=== PATIENT | male | born 1965 | race Caucasian/White ===

== ENCOUNTER 2016-10-27 21:11 | Emergency (ER) | payer OTHER ==
[~2016-10-27] VITALS: Ht 185.4 cm; Wt 105.2 kg
[~2016-10-27 21:11] MED LIST: NAPR500 PO; ROBA750T PO
[2016-10-27 21:17] VITALS: BP 135/85; PULSE 82; RESP 18; TEMP 98; O2SAT 96
--- NOTE | 2016-10-27 21:25 | PD ---
HPI Chief Complaint: Back/ Neck Pain or Injury Time Seen by Provider: 21:25 Travel History International Travel<30 days: No Contact w/Intl Traveler<30days: No Traveled to known affect area: No History of Present Illness HPI 51-year-old male presents to emergency Department with right lower back pain and spasm instruction 4:30 this afternoon. Patient was at work pushing a large console with another worker when he feels he may have strained himself. Since that time he's had increased pain and spasm in the right region which is worse with movement and walking. He denies numbness or weakness in either lower extremity. No bowel or bladder issues. Patient describes the pain as a spasming ache which is 8 out of 10 currently. He has no known drug allergies PFSH Past Medical History Diminished Hearing: No Musculoskeletal: Yes (TENDINITIS) Immunizations Current: No Past Surgical History Other Surgery: Yes (tendon and nerve repair to right shoulder from injury 5 years ago ) Social History Alcohol Use: No Tobacco Use: No Substance Use: No Allergies-Medications (Allergen,Severity, Reaction): Coded Allergies: No Known Allergies (Verified , 10/27/16) Reported Meds & Prescriptions Reported Meds & Active Scripts Active Tramadol (Tramadol HCl) 50 Mg Tab 50 Mg PO Q6H PRN Prednisone 20 Mg Tab 20 Mg PO BID Flexeril (Cyclobenzaprine HCl) 10 Mg Tab 10 Mg PO TID Review of Systems Except as stated in HPI: all other systems reviewed are Neg General / Constitutional: No: Fever Eyes: No: Visual changes HENT: No: Headaches Cardiovascular: No: Chest Pain or Discomfort Respiratory: No: Shortness of Breath Gastrointestinal: No: Abdominal Pain Genitourinary: No: Dysuria Musculoskeletal: Positive: Myalgias, Limited ROM, Pain Skin: No Rash Neurologic: No: Weakness Psychiatric: No: Depression Endocrine: No: Polydipsia Hematologic/Lymphatic: No: Easy Bruising Physical Exam Narrative GENERAL: Patient appears in mild to moderate distress. SKIN: Warm and dry. Normal color. Normal turgor HEAD: Atraumatic. Normocephalic. EYES: Pupils equal and round. No scleral icterus. No injection or drainage. ENT: No nasal bleeding or discharge. Mucous membranes pink and moist. Pharynx is clear. NECK: Trachea midline. Supple and nontender. CARDIOVASCULAR: Regular rate and rhythm. RESPIRATORY: No accessory muscle use. Clear to auscultation. Breath sounds equal bilaterally. MUSCULOSKELETAL: Extremities without clubbing, cyanosis, or edema. No obvious deformities. Patient has palpable spasm and tenderness on the right paraspinous muscles of the lumbar spine into the sacral area. Patient has negative straight leg raise pain bilaterally. Tendon reflexes are 1+ bilaterally. NEUROLOGICAL: Awake and alert. No obvious cranial nerve deficits. Motor grossly within normal limits. Five out of 5 muscle strength in the arms and legs. Normal speech. PSYCHIATRIC: Appropriate mood and affect; insight and judgment normal. Data Data Last Documented VS Vital Signs Date Time Temp Pulse Resp B/P Pulse Ox O2 Delivery O2 Flow Rate FiO2 10/27/16 21:17 98.0 82 18 135/85 96 Orders Ketorolac Inj (Toradol Inj) (10/27/16 21:30) Prednisone (Deltasone) (10/27/16 21:30) MDM Medical Decision Making Medical Screen Exam Complete: Yes Emergency Medical Condition: Yes Differential Diagnosis Lumbago. Muscle spasm. Lumbar strain. Possible sciatica. Narrative Course Patient is medically stable at time of exam. Radiographic imaging is not felt warranted at this time based on the patient's history and physical. Patient is given Toradol 60 mg IM as well as 60 mg prednisone by mouth. Patient is continued on prednisone 20 mg twice a day 5 days. Patient is given Flexeril 10 mg 1 up to 3 times daily when necessary muscle spasm #15. Patient is given Toradol 20 mg one every 6 hours when necessary pain #20. Patient is to use heat, ice, and gentle stretching until improved. Patient should follow with his primary care physician or return to emergency Department with worsening symptoms as discussed. Diagnosis Primary Impression: Lumbago without sciatica Qualified Code: M54.5 - Acute right-sided low back pain without sciatica Additional Impression: Muscle spasm Referrals: Primary Care Physician Patient Instructions: Acute Low Back Pain (ED), General Instructions, Lower Back Exercises (ED), Muscle Spasm (ED) Additional Instructions: Radiographic imaging is not felt warranted at this time based on the patient's history and physical. Patient is given Toradol 60 mg IM as well as 60 mg prednisone by mouth. Patient is continued on prednisone 20 mg twice a day 5 days. Patient is given Flexeril 10 mg 1 up to 3 times daily when necessary muscle spasm #15. Patient is given Toradol 20 mg one every 6 hours when necessary pain #20. Patient is to use heat, ice, and gentle stretching until improved. Patient should follow with his primary care physician or return to emergency Department with worsening symptoms as discussed. Med/Other Pt SpecificInfo: Prescription(s) given Scripts Tramadol 50 Mg Tab50 Mg PO Q6H PRN (PAIN) #20 TAB Prov:Deuce Call MD 10/27/16 Prednisone 20 Mg Tab20 Mg PO BID #10 TAB Prov:Deuce Call MD 10/27/16 Cyclobenzaprine (Flexeril)10 Mg Tab10 Mg PO TID #15 TAB Prov:Deuce Call MD 10/27/16 Disposition: 01 DISCHARGE HOME Condition: Stable Manolo Cunningham October 27, 2016 21:25
[2016-10-27] MEDS ORDERED: KETOROLAC TROMETHAMINE 60 MG/2 ML (IM) VIAL IM ONE (21:30)
[2016-10-27] MEDS ORDERED: predniSONE 20 MG TAB PO ONE (21:30)
[2016-10-27] MEDS ORDERED: TRAM50TA PO (21:31)
[2016-10-27] MEDS ORDERED: PRED20 PO (21:31)
[2016-10-27] MEDS ORDERED: CYCL1TAB29 PO (21:31)
== END 2016-10-27 21:48 | disposition home or self-care (01) ==
LOC: PHEFT 21:11
DX: M54.5 Low back pain (principal); M62.830 Muscle spasm of back
CPT/HCPCS: 96372; 99284; J1885; J7512

== ENCOUNTER 2016-12-02 15:53 | Emergency (ER) | payer OTHER ==
[~2016-12-02] VITALS: Ht 185.4 cm; Wt 104.0 kg
[~2016-12-02 15:53] MED LIST changes: +CYCL1TAB29 PO; -NAPR500 PO; +PRED20 PO; -ROBA750T PO; +TRAM50TA PO
[2016-12-02 15:56] VITALS: BP 136/88; PULSE 79; RESP 16; TEMP 98.1; O2SAT 96
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
[2016-12-02] MEDS ORDERED: SODIUM CHLOR 0.9% 1000 ML INJ 1,000 ML IV ONE ×2 (16:30→18:00)
[2016-12-02 16:52] LABS: AUTOMATED NEUTROPHIL # 8.1 TH/MM3 (1.8-7.7); BASOPHIL # 0.2 TH/MM3 (0-0.2); BASOPHIL % 1.4 % (0.0-2.0); EOSINOPHIL # 0.1 TH/MM3 (0-0.4); HEMATOCRIT 45.8 % (39.0-51.0); HEMO FLAGS DIFF FINAL; LYMPH % 15.1 % (9.0-44.0); LYMPHOCYTE # 1.6 TH/MM3 (1.0-4.8); MEAN CELL VOLUME 86.7 FL (80.0-100.0); MEAN CORPUSCULAR HEMOGLOBIN 28.5 PG (27.0-34.0); MEAN CORPUSCULAR HGB CONC 32.8 % (32.0-36.0); MONO % 8.5 % (0.0-8.0); PLATELET COUNT 316 TH/MM3 (150-450); RED BLOOD COUNT 5.28 MIL/MM3 (4.50-5.90); RED CELL DISTRIBUTION WIDTH 12.9 % (11.6-17.2); WHITE BLOOD COUNT 10.9 TH/MM3 (4.0-11.0)
[2016-12-02 16:54] LABS: BLOOD, URINE NEG (NEG); GLUCOSE,URINE NEG (NEG); KETONE, URINE NEG (NEG); NITRITE,URINE NEG (NEG); PH, URINE 5.5 (5.0-8.5)
[2016-12-02 16:58] LABS: POTASSIUM 4.1 MEQ/L (3.5-5.1)
[2016-12-02 17:02] LABS: BICARBONATE 26.9 MEQ/L (21.0-32.0)
[2016-12-02 17:03] LABS: METHOD OF COLLECTION CLEAN CATCH; RBC, URINE 0-3 /hpf (0-3); SQUAMOUS EPITHELIAL CELL URINE 0-5 /hpf (0-5); URINE COLOR YELLOW (YELLW/STRAW)
[2016-12-02 17:04] LABS: COMMENT (UR) CULT NOT INDICATED; CULTURE IF INDICATED CULT NOT INDICATED
[2016-12-02 17:40] LABS: CKMB 3.9 NG/ML (0.5-3.6)
[2016-12-02] MEDS ORDERED: IOHEXOL 350 MG/ML 10 ML VIAL (for RAD DIAG) IV ONE (17:52)
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
[2016-12-02 19:13] VITALS: BP 132/80; PULSE 78; RESP 18; O2SAT 97
== END 2016-12-02 19:17 | disposition home or self-care (01) ==
LOC: PHED 15:53
DX: S80.812A Abrasion, left lower leg, initial encounter (principal); S80.811A Abrasion, right lower leg, initial encounter; W23.0XXA Caught, crushed, jammed, or pinched between moving objects, initial encounter; M62.82 Rhabdomyolysis; Y99.0 Civilian activity done for income or pay
CPT/HCPCS: 71260; 74177; 80048; 81001; 82550; 82552; 85025; 96360; 96361; 99285; J7030; Q9967

== ENCOUNTER 2017-08-20 14:10 | Emergency (ER) | payer OTHER ==
[~2017-08-20] VITALS: Ht 185.4 cm; Wt 103.0 kg
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
[2017-08-20 14:24] VITALS: BP 129/70; PULSE 67; RESP 16; TEMP 97.5; O2SAT 96
[2017-08-20] MEDS ORDERED: SODIUM CHLORIDE 0.9% FLUSH 10 ML FLUSH IV FLUSH PRN (14:30)
[2017-08-20 14:47] VITALS: O2SAT 97
[2017-08-20 14:55] LABS: CHLORIDE 105 MEQ/L (98-107); SODIUM (NA) 139 MEQ/L (136-145)
[2017-08-20 14:58] LABS: CALCIUM 8.7 MG/DL (8.5-10.1)
[2017-08-20 14:59] LABS: ALBUMIN 3.6 GM/DL (3.4-5.0); BICARBONATE 30.3 MEQ/L (21.0-32.0); BLOOD UREA NITROGEN 17 MG/DL (7-18); GLUCOSE,RANDOM 109 MG/DL (74-106)
[2017-08-20 15:01] LABS: BILIRUBIN, URINE NEG (NEG); BLOOD, URINE NEG (NEG); GLUCOSE,URINE NEG (NEG); KETONE, URINE NEG (NEG); NITRITE,URINE NEG (NEG); URINE COLOR YELLOW (YELLW/STRAW); URINE LEUKOCYTE ESTERASE NEG (NEG)
[2017-08-20 15:02] LABS: ALT (GPT) 43 U/L (12-78); AST (GOT) 22 U/L (15-37); GLOMERULAR FILTRATION RATE 64 ML/MIN (>89)
[2017-08-20 15:03] LABS: TOTAL BILIRUBIN ADULT 0.5 MG/DL (0.2-1.0); TOTAL PROTEIN 7.3 GM/DL (6.4-8.2)
[2017-08-20 15:05] LABS: ALKALINE PHOSPHATASE 80 U/L (45-117)
[2017-08-20 15:14] LABS: WBC, URINE 0-2 /hpf (0-5)
--- NOTE | 2017-08-20 15:22 | RADRPT ---
EXAM DATE/TIME: 08/20/2017 14:58 [facility] COMPARISON: CT ABDOMEN & PELVIS W CONTRAST, December 02, 2016, 17:33. INDICATIONS : Lower abdominal pain for 3 days. ORAL CONTRAST: No oral contrast ingested. RADIATION DOSE: 22.09 CTDIvol (mGy) MEDICAL HISTORY : Irritiable bowel syndrome. Renal calculi. Tendonitis SURGICAL HISTORY : Rt elbow ENCOUNTER: Initial ACUITY: 3 days PAIN SCALE: 7/10 LOCATION: middle just below belt TECHNIQUE: Volumetric scanning of the abdomen and pelvis was performed. Using automated exposure control and ad justment of the mA and/or kV according to patient size, radiation dose was kept as low as reasonably achievable to obtain optimal diagnostic quality images. DICOM format image data is available electro nically for review and comparison. FINDINGS: LOWER LUNGS: The visualized lower lungs are clear. LIVER: Homogeneous density without lesion. There is no dilation of the biliary tree. No calcified gallston es. SPLEEN: Normal size without lesion. PANCREAS: Within normal limits. KIDNEYS: Normal in size and shape. There is a 2 mm nonobstructing stone in the lower pole of the left kidney.. ADRENAL GLANDS: Within normal limits. VASCULAR: There is no aortic aneurysm. BOWEL/MESENTERY: The stomach, small bowel, and colon demonstrate no acute abnormality. There is no free intraperitone al air or fluid. ABDOMINAL WALL: Within normal limits. RETROPERITONEUM: There is no lymphadenopathy. BLADDER: No wall thickening or mass. REPRODUCTIVE: Within normal limits. INGUINAL: No adenopathy is seen. There are small bilateral inguinal hernias larger on the left than the right. There is fat herniating into the defect. MUSCULOSKELETAL: Within normal limits for patient age. CONCLUSION: 1. 2 mm nonobstructing stone in the left kidney. 2. Small bilateral inguinal hernias. 3. No definite abnormality to explain the patient's lower abdominal pain is identified. Remberto Pitts MD on August 20, 2017 at 15:17 Board Certified Radiologist. This report was verified electronically.
[2017-08-20 15:27] LABS: AUTOMATED NEUTROPHIL # 4.9 TH/MM3 (1.8-7.7); BASOPHIL # 0.1 TH/MM3 (0-0.2); EOSINOPHIL # 0.2 TH/MM3 (0-0.4); HEMATOCRIT 45.2 % (39.0-51.0); HEMOGLOBIN 15.5 GM/DL (13.0-17.0); LYMPH % 19.7 % (9.0-44.0); LYMPHOCYTE # 1.4 TH/MM3 (1.0-4.8); MEAN CELL VOLUME 86.4 FL (80.0-100.0); MEAN CORPUSCULAR HEMOGLOBIN 29.7 PG (27.0-34.0); MEAN CORPUSCULAR HGB CONC 34.3 % (32.0-36.0); MONO % 7.2 % (0.0-8.0); MONOCYTE # 0.5 TH/MM3 (0-0.9); NEUT % 69.1 % (16.0-70.0); PLATELET COUNT 290 TH/MM3 (150-450); RED BLOOD COUNT 5.24 MIL/MM3 (4.50-5.90); RED CELL DISTRIBUTION WIDTH 12.9 % (11.6-17.2); WHITE BLOOD COUNT 7.1 TH/MM3 (4.0-11.0)
[2017-08-20] MEDS ORDERED: TRAM50 PO (15:45)
[2017-08-20] MEDS ORDERED: METR-1 PO (15:45)
[2017-08-20] MEDS ORDERED: CIPR-9 PO (15:45)
== END 2017-08-20 16:07 | disposition home or self-care (01) ==
LOC: PHED 14:10
DX: K57.30 Diverticulosis of large intestine without perforation or abscess without bleeding (principal); N20.0 Calculus of kidney; K40.20 Bilateral inguinal hernia, without obstruction or gangrene, not specified as recurrent; Z87.19 Personal history of other diseases of the digestive system; Z87.442 Personal history of urinary calculi; Z87.39 Personal history of other diseases of the musculoskeletal system and connective tissue
CPT/HCPCS: 74176; 80053; 81001; 83690; 85025; 99284

== ENCOUNTER 2017-08-24 14:29 | Observation (INO) | payer OTHER ==
[~2017-08-24] VITALS: Ht 185.4 cm; Wt 113.8 kg
[~2017-08-24 14:29] MED LIST changes: +CIPR-9 PO; -CYCL1TAB29 PO; +METR-1 PO; -PRED20 PO; +TRAM50 PO; -TRAM50TA PO
[2017-08-24 14:43] VITALS: BP 144/100; PULSE 76; RESP 18; TEMP 98.5; O2SAT 96
[2017-08-24] MEDS ORDERED: SODIUM CHLOR 0.9% 1000 ML INJ 1,000 ML IV SCH (15:50)
[2017-08-24] MEDS ORDERED: LIDOCAINE VISCOUS 2% SOLN 15 ML UDC PO ONE (16:00)
[2017-08-24] MEDS ORDERED: ALUMINUM/MAGNESIUM/SIMETH 30 ML CUP PO ONE (16:00)
[2017-08-24] MEDS ORDERED: ONDANSETRON HCL 4 MG/2 ML VIAL IVP ONE (16:00)
[2017-08-24] MEDS ORDERED: DICYCLOMINE HCL 20 MG/2 ML VIAL IM ONE (16:00)
[2017-08-24] MEDS ORDERED: SODIUM CHLORIDE 0.9% FLUSH 10 ML FLUSH IV FLUSH PRN ×2 (16:00→18:00)
[2017-08-24] MEDS ORDERED: KETOROLAC TROMETHAMINE 30 MG/ML (IVP) VIAL IVP ONE (16:00)
[2017-08-24 16:47] LABS: BILIRUBIN, URINE NEG (NEG); BLOOD, URINE NEG (NEG); GLUCOSE,URINE NEG (NEG); KETONE, URINE NEG (NEG); NITRITE,URINE NEG (NEG); PH, URINE 5.5 (5.0-8.5); URINE COLOR YELLOW (YELLW/STRAW); URINE LEUKOCYTE ESTERASE TRACE (NEG)
[2017-08-24 16:56] VITALS: O2SAT 98
[2017-08-24 16:56] LABS: CHLORIDE 103 MEQ/L (98-107); SODIUM (NA) 138 MEQ/L (136-145)
[2017-08-24 16:59] LABS: CALCIUM 8.7 MG/DL (8.5-10.1)
[2017-08-24 17:00] LABS: ALBUMIN 3.6 GM/DL (3.4-5.0); BICARBONATE 28.8 MEQ/L (21.0-32.0); BLOOD UREA NITROGEN 13 MG/DL (7-18); GLUCOSE,RANDOM 90 MG/DL (74-106)
[2017-08-24 17:02] LABS: ALT (GPT) 63 U/L (12-78)
[2017-08-24 17:03] LABS: AST (GOT) 39 U/L (15-37); GLOMERULAR FILTRATION RATE 79 ML/MIN (>89)
[2017-08-24 17:04] LABS: TOTAL BILIRUBIN ADULT 0.4 MG/DL (0.2-1.0); TOTAL PROTEIN 7.4 GM/DL (6.4-8.2)
[2017-08-24 17:05] LABS: ALKALINE PHOSPHATASE 72 U/L (45-117)
[2017-08-24 17:11] LABS: BASOPHIL % 0.5 % (0.0-2.0); EOSINOPHIL # 0.2 TH/MM3 (0-0.4); EOSINOPHIL % 2.2 % (0.0-4.0); HEMATOCRIT 44.8 % (39.0-51.0); HEMOGLOBIN 15.1 GM/DL (13.0-17.0); LYMPHOCYTE # 1.5 TH/MM3 (1.0-4.8); MEAN CELL VOLUME 86.3 FL (80.0-100.0); MEAN CORPUSCULAR HEMOGLOBIN 29.1 PG (27.0-34.0); MEAN CORPUSCULAR HGB CONC 33.8 % (32.0-36.0); MEAN PLATELET VOLUME 7.9 FL (7.0-11.0); MONO % 7.9 % (0.0-8.0); MONOCYTE # 0.7 TH/MM3 (0-0.9); NEUT % 71.4 % (16.0-70.0); PLATELET COUNT 283 TH/MM3 (150-450); RED BLOOD COUNT 5.19 MIL/MM3 (4.50-5.90); RED CELL DISTRIBUTION WIDTH 12.7 % (11.6-17.2); WHITE BLOOD COUNT 8.4 TH/MM3 (4.0-11.0)
[2017-08-24] MEDS ORDERED: SODIUM CHLOR 0.9% 1000 ML INJ 1,000 ML IV ONE (17:45)
--- NOTE | 2017-08-24 17:54 | PD ---
HPI Chief Complaint: GI Complaint Time Seen by Provider: 15:46 Travel History International Travel<30 days: No Contact w/Intl Traveler<30days: No Traveled to known affect area: No History of Present Illness HPI Patient's 52 years old and complains of bloody diarrhea. He reports symptoms first began today. He has blood in the toilet paper and in the bowl as well. He was seen here about 3 days ago and imaging at that point was unremarkable lab was blood work. He was discharged with Cipro and Flagyl along with tramadol. He reports pain in the left lower quadrant. The pain is worse with palpation. PFSH Past Medical History Diminished Hearing: No Musculoskeletal: Yes (TENDINITIS) Immunizations Current: No Tetanus Vaccination: > 5 Years Influenza Vaccination: No Past Surgical History Abdominal Surgery: Yes (PERFERATION) Other Surgery: Yes (tendon and nerve repair to right shoulder from injury 5 years ago ) Social History Alcohol Use: No Tobacco Use: No Substance Use: No Allergies-Medications (Allergen,Severity, Reaction): Coded Allergies: No Known Allergies (Verified Adverse Reaction, Unknown, 08/24/17) Reported Meds & Prescriptions Reported Meds & Active Scripts Active Flagyl (Metronidazole) 500 Mg Tab 500 Mg PO TID 5 Days Ultram (Tramadol HCl) 50 Mg Tab 50 Mg PO Q6H PRN Review of Systems Except as stated in HPI: all other systems reviewed are Neg Physical Exam Narrative GENERAL: 52-year-old male well-nourished well-developed no acute distress Vital Signs Date Time Temp Pulse Resp B/P (MAP) Pulse Ox O2 Delivery O2 Flow Rate FiO2 08/24/17 16:56 98 Room Air 08/24/17 14:43 98.5 76 18 144/100 (115) 96 RECTAL: Red mucous stool. No hemorrhoid. No fissure or fistula. SKIN: Warm and dry. HEAD: Atraumatic. Normocephalic. EYES: Pupils equal and round. No scleral icterus. No injection or drainage. ENT: No nasal bleeding or discharge. Mucous membranes pink and moist. NECK: Trachea midline. No JVD. CARDIOVASCULAR: Regular rate and rhythm. RESPIRATORY: No accessory muscle use. Clear to auscultation. Breath sounds equal bilaterally. GASTROINTESTINAL: Abdomen soft, non-tender, nondistended. Hepatic and splenic margins not palpable. MUSCULOSKELETAL: Extremities without clubbing, cyanosis, or edema. No obvious deformities. NEUROLOGICAL: Awake and alert. No obvious cranial nerve deficits. Motor grossly within normal limits. Five out of 5 muscle strength in the arms and legs. Normal speech. PSYCHIATRIC: Appropriate mood and affect; insight and judgment normal. Data Data Last Documented VS Vital Signs Date Time Temp Pulse Resp B/P (MAP) Pulse Ox O2 Delivery O2 Flow Rate FiO2 08/24/17 16:56 98 Room Air 08/24/17 14:43 98.5 76 18 144/100 (115) Orders Orders Complete Blood Count With Diff (08/24/17 15:50) Comprehensive Metabolic Panel (08/24/17 15:50) Lipase (08/24/17 15:50) Urinalysis - C+S If Indicated (08/24/17 15:50) Iv Access Insert/Monitor (08/24/17 15:50) Ecg Monitoring (08/24/17 15:50) Oximetry (08/24/17 15:50) Ondansetron Inj (Zofran Inj) (08/24/17 16:00) Sodium Chlor 0.9% 1000 Ml Inj (Ns 1000 M (08/24/17 15:50) Sodium Chloride 0.9% Flush (Ns Flush) (08/24/17 16:00) Dicyclomine Inj (Bentyl Inj) (08/24/17 16:00) Ketorolac Inj (Toradol Inj) (08/24/17 16:00) Al-Mag Hy-Si 40-40-4 Mg/Ml Liq (Mag-Al P (08/24/17 16:00) Lidocaine 2% Viscous (Xylocaine 2% Visco (08/24/17 16:00) Cta Abdomen W Iv Contrast W 3d (08/24/17 ) Sodium Chlor 0.9% 1000 Ml Inj (Ns 1000 M (08/24/17 17:45) Labs Laboratory Tests Test 08/24/17 16:40 White Blood Count 8.4 TH/MM3 Red Blood Count 5.19 MIL/MM3 Hemoglobin 15.1 GM/DL Hematocrit 44.8 % Mean Corpuscular Volume 86.3 FL Mean Corpuscular Hemoglobin 29.1 PG Mean Corpuscular Hemoglobin Concent 33.8 % Red Cell Distribution Width 12.7 % Platelet Count 283 TH/MM3 Mean Platelet Volume 7.9 FL Neutrophils (%) (Auto) 71.4 % Lymphocytes (%) (Auto) 18.0 % Monocytes (%) (Auto) 7.9 % Eosinophils (%) (Auto) 2.2 % Basophils (%) (Auto) 0.5 % Neutrophils # (Auto) 6.0 TH/MM3 Lymphocytes # (Auto) 1.5 TH/MM3 Monocytes # (Auto) 0.7 TH/MM3 Eosinophils # (Auto) 0.2 TH/MM3 Basophils # (Auto) 0.0 TH/MM3 CBC Comment DIFF FINAL Differential Comment Urine Color YELLOW Urine Turbidity CLEAR Urine pH 5.5 Urine Specific [place] 1.015 Urine Protein NEG mg/dL Urine Glucose (UA) NEG mg/dL Urine Ketones NEG mg/dL Urine Occult Blood NEG Urine Nitrite NEG Urine Bilirubin NEG Urine Urobilinogen 0.2 MG/DL Urine Leukocyte Esterase TRACE Microscopic Urinalysis Comment CULT NOT INDICATED Blood Urea Nitrogen 13 MG/DL Creatinine 1.00 MG/DL Random Glucose 90 MG/DL Total Protein 7.4 GM/DL Albumin 3.6 GM/DL Calcium Level 8.7 MG/DL Alkaline Phosphatase 72 U/L Aspartate Amino Transf (AST/SGOT) 39 U/L Alanine Aminotransferase (ALT/SGPT) 63 U/L Total Bilirubin 0.4 MG/DL Sodium Level 138 MEQ/L Potassium Level 4.1 MEQ/L Chloride Level 103 MEQ/L Carbon Dioxide Level 28.8 MEQ/L Anion Gap 6 MEQ/L Estimat Glomerular Filtration Rate 79 ML/MIN Lipase 107 U/L MDM Medical Decision Making Medical Screen Exam Complete: Yes Emergency Medical Condition: Yes Medical Record Reviewed: Yes Differential Diagnosis Constipation, Gastritis, Acute Cholecystitis, Biliary Colic, Pancreatitis, FLORES , Hepatitis, Bowel Obstruction, Cystitis, Mesenteric Ischemia, AAA, Appendicitis , Renal Stone/Hydronephrosis, GERD, perforated viscous Narrative Course CBC & BMP Diagram 08/24/17 16:40 Total Protein 7.4, Albumin 3.6, Calcium Level 8.7, Alkaline Phosphatase 72, Aspartate Amino Transf (AST/SGOT) 39 H, Alanine Aminotransferase (ALT/SGPT) 63, Total Bilirubin 0.4 Stool guaiac was positive and is no hemorrhoids or fissure or fistula. The patient will be kept here for observation as he is currently on Cipro and Flagyl and there is no readily identifiable etiology for the rectal bleeding. D/ w Dr Vincent for GI who requests CTA abdomen with 23 hr obs. D/w Dr Bonilla for [facility]. Diagnosis Primary Impression: Bloody stool Additional Impression: Rectal bleed Admitting Information Admitting Physician Requests: Observation Remberto Gabriel MD Aug 24, 2017 17:54
[2017-08-24 17:56] VITALS: BP 138/72; PULSE 68; RESP 16; O2SAT 98
[2017-08-24] MEDS ORDERED: ACETAMINOPHEN 325 MG TAB PO PRN (18:00)
[2017-08-24] MEDS ORDERED: NALOXONE HCL 0.4 MG/ML AMP IV PUSH PRN (18:00)
[2017-08-24] MEDS: SODIUM CHLORIDE 0.9% FLUSH 10 ML FLUSH IV FLUSH SCH (20:37)
[2017-08-24 20:44] VITALS: BP 138/77; PULSE 57; RESP 20; TEMP 96.2; O2SAT 95
[2017-08-24] MEDS ORDERED: IOHEXOL 350 MG/ML 10 ML VIAL (for RAD DIAG) IVCONTRAST ONE (20:54)
[2017-08-24 22:20] VITALS: O2SAT 95
[2017-08-24] MEDS ORDERED: ONDANSETRON HCL 4 MG/2 ML VIAL IV PUSH PRN (23:15)
[2017-08-24] MEDS ORDERED: MORPHINE SULFATE 2 MG/ML INJ IV PUSH PRN (23:15)
[2017-08-25] VITALS: BP 127/77; PULSE 59; RESP 20; TEMP 96.5; O2SAT 94
--- NOTE | 2017-08-25 01:20 | RADRPT ---
EXAM DATE/TIME: 08/24/2017 20:42 [place] COMPARISON: No previous studies available for comparison. INDICATIONS : Lower abdomen pain. Evaluate for ischemic colitis. IV CONTRAST: 100 cc Omnipaque 350 (iohexol) IV ORAL CONTRAST: No oral contrast ingested. RADIATION DOSE: 18.04 CTDIvol (mGy) MEDICAL HISTORY : Renal calculi. SURGICAL HISTORY : None. ENCOUNTER: Initial ACUITY: 1 week PAIN SCALE: 8/10 LOCATION: lower quadrant abdomen TECHNIQUE: Volumetric scanning was performed using a multi-row detector CT scanner. The data was post processed with a variety of visualization algorithms including full volume maximum intensity projection, multi -planar sliding thin slab reformation, curved planar reformation, and surface rendering techniques. Using automated exposure control and adjustment of the mA and/or kV according to patient size, radiat ion dose was kept as low as reasonably achievable to obtain optimal diagnostic quality images. DICOM format image data is available electronically for review and comparison. FINDINGS: ABDOMINAL AORTA: The lumen is smooth without significant narrowing or aneurismal dilation. The proximal celiac and sup erior mesenteric arteries are patent and normal in diameter. There is early bifurcation of the right renal artery. There are 2 left renal arteries. BIFURCATION: Normal. RIGHT PELVIS: The right common iliac, internal iliac and external iliac vessels are patent without luminal irregula rity. LEFT PELVIS: The left common iliac, internal iliac and external iliac vessels are patent and without luminal irreg ularity. CONCLUSION: Normal CTA of the abdomen and pelvis. Celiac and SMA vessels are normal dimension. Brian Del Toro MD on August 25, 2017 at 1:16 Board Certified Radiologist. This report was verified electronically.
[2017-08-25] MEDS: SODIUM CHLORIDE 0.9% FLUSH 10 ML FLUSH IV FLUSH SCH (08:26)
[2017-08-25 08:33] VITALS: BP 119/64; PULSE 65; RESP 14; TEMP 96.1; O2SAT 96
[2017-08-25] MEDS ORDERED: PANTOPRAZOLE SODIUM 40 MG VIAL IV PUSH SCH (11:00)
--- NOTE | 2017-08-25 11:41 | HHI.HP ---
[facility] No Primary Care Physician Admission Diagnosis GI Bleed Diagnoses: Chief Complaint: gi bleed Travel History International Travel<30 Days: No Contact w/Intl Traveler <30 Da: No Traveled to Known Affected Are: No History of Present Illness This patient is a 52-year-old gentleman who is relatively healthy who had an episode of acute intestinal bleeding for 1 day and increased abdominal pain for 4 days. The pain is worse with walking and improved with rest. Patient says this past Tuesday he had some lower abdominal pain and went to the emergency room. He was given antibiotics as an outpatient. It is possible thought for diverticular disease and patient was discharged. Several days later he had increased pain while he was walking and he took some Motrin and tramadol and the pain became tolerated but he was still unable to complete activities of daily living due to the pain. Tuesday pass he noted some increased dark stools black stools and red stool so he came back to the emergency room. Apparently as an outpatient he had a colonoscopy done last fall after some abdominal pain requiring him to be observed overnight in the hospital. Imaging here is unremarkable and the counts are quite normal. Patient is recommended for further evaluation by GI with possible upper endoscopy. Patient does admit quite a bit of stress lately as he has premature of his daughter who is still in the ICU and been working full-time and caring for his family. Review of Systems Constitutional: DENIES: Diaphoretic episodes, Fatigue, Fever, Weight gain, Weight loss, Chills, Dizziness, Change in appetite, Night Sweats Endocrine: DENIES: Heat/cold intolerance, Polydipsia, Polyuria, Polyphagia Eyes: DENIES: Blurred vision, Diplopia, Eye inflammation, Eye pain, Vision loss , Photosensitivity, Double Vision Respiratory: DENIES: Apneas, Cough, Snoring, Wheezing, Hemoptysis, Sputum production, Shortness of breath Cardiovascular: DENIES: Chest pain, Palpitations, Syncope, Dyspnea on Exertion , PND, Lower Extremity Edema, Orthopnea, Claudication Gastrointestinal: COMPLAINS OF: Abdominal pain, Black stools, Bloody stools, DENIES: Constipation, Diarrhea, Nausea, Vomiting, Difficulty Swallowing, Anorexia Musculoskeletal: DENIES: Joint pain, Muscle aches, Stiffness, Joint Swelling, Back pain, Neck pain Integumentary: DENIES: Abnormal pigmentation, Nail changes, Pruritus, Rash Hematologic/lymphatic: DENIES: Bruising, Lymphadenopathy Immunologic/allergic: DENIES: Eczema, Urticaria Neurologic: DENIES: Abnormal gait, Headache, Localized weakness, Paresthesias, Seizures, Speech Problems, Tremor, Poor Balance Psychiatric: DENIES: Anxiety, Confusion, Mood changes, Depression, Hallucinations, Agitation, Suicidal Ideation, Homicidal Ideation, Delusions Past Family Social History Past Medical History Denies Past Surgical History Right arm surgery Reported Medications None Allergies: Coded Allergies: No Known Allergies (Verified Adverse Reaction, Unknown, 08/24/17) Active Ordered Medications Reviewed in the EMR Family History Mother had diabetes and hypertension, father is alive and healthy Social History No tobacco or alcohol dependency issues and he quit both these devices over 20 years ago, he is and works in [employer] Physical Exam Vital Signs Vital Signs Date Time Temp Pulse Resp B/P (MAP) Pulse Ox O2 Delivery O2 Flow Rate FiO2 08/25/17 08:33 96.1 65 14 119/64 (82) 96 08/25/17 00:00 96.5 59 20 127/77 (94) 94 08/24/17 22:20 95 21 08/24/17 20:44 96.2 57 20 138/77 (97) 95 08/24/17 18:40 08/24/17 17:56 68 16 138/72 (94) 98 Room Air 08/24/17 16:56 98 Room Air 08/24/17 14:43 98.5 76 18 144/100 (115) 96 Physical Exam GENERAL: This is a well-nourished, well-developed patient, in no apparent distress. SKIN: No rashes, ecchymoses or lesions. Cool and dry. HEAD: Atraumatic. Normocephalic. No temporal or scalp tenderness. EYES: Pupils equal round and reactive. Extraocular motions intact. No scleral icterus. No injection or drainage. ENT: Nose without bleeding, purulent drainage or septal hematoma. Throat without erythema, tonsillar hypertrophy or exudate. Uvula midline. Airway patent. NECK: Trachea midline. No JVD or lymphadenopathy. Supple, nontender, no meningeal signs. CARDIOVASCULAR: Regular rate and rhythm without murmurs, gallops, or rubs. RESPIRATORY: Clear to auscultation. Breath sounds equal bilaterally. No wheezes , rales, or rhonchi. GASTROINTESTINAL: Abdomen soft, non-tender, nondistended. No hepato-splenomegaly , or palpable masses. No guarding. MUSCULOSKELETAL: Extremities without clubbing, cyanosis, or edema. No joint tenderness, effusion, or edema noted. No calf tenderness. Negative Homans sign bilaterally. NEUROLOGICAL: Awake and alert. Cranial nerves II through XII intact. Motor and sensory grossly within normal limits. Five out of 5 muscle strength in all muscle groups. Normal speech. Laboratory Laboratory Tests Test 08/24/17 16:40 White Blood Count 8.4 Red Blood Count 5.19 Hemoglobin 15.1 Hematocrit 44.8 Mean Corpuscular Volume 86.3 Mean Corpuscular Hemoglobin 29.1 Mean Corpuscular Hemoglobin Concent 33.8 Red Cell Distribution Width 12.7 Platelet Count 283 Mean Platelet Volume 7.9 Neutrophils (%) (Auto) 71.4 Lymphocytes (%) (Auto) 18.0 Monocytes (%) (Auto) 7.9 Eosinophils (%) (Auto) 2.2 Basophils (%) (Auto) 0.5 Neutrophils # (Auto) 6.0 Lymphocytes # (Auto) 1.5 Monocytes # (Auto) 0.7 Eosinophils # (Auto) 0.2 Basophils # (Auto) 0.0 CBC Comment DIFF FINAL Differential Comment Urine Color YELLOW Urine Turbidity CLEAR Urine pH 5.5 Urine Specific [place] 1.015 Urine Protein NEG Urine Glucose (UA) NEG Urine Ketones NEG Urine Occult Blood NEG Urine Nitrite NEG Urine Bilirubin NEG Urine Urobilinogen 0.2 Urine Leukocyte Esterase TRACE Microscopic Urinalysis Comment CULT NOT INDICATED Blood Urea Nitrogen 13 Creatinine 1.00 Random Glucose 90 Total Protein 7.4 Albumin 3.6 Calcium Level 8.7 Alkaline Phosphatase 72 Aspartate Amino Transf (AST/SGOT) 39 Alanine Aminotransferase (ALT/SGPT) 63 Total Bilirubin 0.4 Sodium Level 138 Potassium Level 4.1 Chloride Level 103 Carbon Dioxide Level 28.8 Anion Gap 6 Estimat Glomerular Filtration Rate 79 Lipase 107 Result Diagram: 08/24/17 1640 08/24/17 1640 Imaging Last Impressions Abdomen/Pelvis CT 08/24/17 0000 Signed Impressions: Service Date/Time: Thursday, August 24, 2017 20:42 - CONCLUSION: Normal CTA of the abdomen and pelvis. Celiac and SMA vessels are normal dimension. MD Manuel Tobin VTE Risk Assessment Caprini VTE Risk Assessment: Mod/High Risk (score >= 2) VTE Pharm Contraindication: Active bleeding Caprini Risk Assessment Model Point Value = 1 Point Value = 2 Point Value = 3 Point Value = 5 Age 41-60 Minor surgery BMI > 25 kg/m2 Swollen legs Varicose veins or History of unexplained or recurrent spontaneous Oral contraceptives or hormone replacement Sepsis (< 1 month) Serious lung disease, including pneumonia (< 1 month) Abnormal pulmonary function Acute myocardial infarction Congestive heart failure (< 1 month) History of inflammatory bowel disease Medical patient at bed rest Age 61-74 Arthroscopic surgery Major open surgery (> 45 min) Laparoscopic surgery (> 45 min) Malignancy Confined to bed (> 72 hours) Immobilizing plaster cast Central venous access Age >= 75 History of VTE Family history of VTE Factor V Leiden Prothrombin [id number] Lupus anticoagulant Anticardiolipin antibodies Elevated serum homocysteine Heparin-induced thrombocytopenia Other congenital or acquired thrombophilia Stroke (< 1 month) Elective arthroplasty Hip, pelvis, or leg fracture Acute spinal cord injury (< 1 month) Prophylaxis Regimen Total Risk Factor Score Risk Level Prophylaxis Regimen 0-1 Low Early ambulation 2 Moderate Order ONE of the following: *Sequential Compression Device (SCD) *Heparin 5000 units SQ BID 3-4 Higher Order ONE of the following medications: *Heparin 5000 units SQ TID *Enoxaparin/Lovenox 40 mg SQ daily (WT < 150 kg, CrCl > 30 mL/min) *Enoxaparin/Lovenox 30 mg SQ daily (WT < 150 kg, CrCl > 10-29 mL/min) *Enoxaparin/Lovenox 30 mg SQ BID (WT < 150 kg, CrCl > 30 mL/min) AND/OR *Sequential Compression Device (SCD) 5 or more Highest Order ONE of the following medications: *Heparin 5000 units SQ TID (Preferred with Epidurals) *Enoxaparin/Lovenox 40 mg SQ daily (WT < 150 kg, CrCl > 30 mL/min) *Enoxaparin/Lovenox 30 mg SQ daily (WT < 150 kg, CrCl > 10-29 mL/min) *Enoxaparin/Lovenox 30 mg SQ BID (WT < 150 kg, CrCl > 30 mL/min) AND *Sequential Compression Device (SCD) Assessment and Plan Problem List: (1) Bloody stool ICD Code: K92.1 - Melena Status: Acute Plan: Continue Proton pump inhibitor IV morphine for pain and continue GI eval for endoscopy Code Status full code Faye Bonilla MD Aug 25, 2017 11:41
--- NOTE | 2017-08-25 14:21 | PD.PROCEDR ---
GI Procedure PROCEDURE PERFORMED Upper endoscopy with biopsy INDICATION FOR PROCEDURE Black stool, rule out GI bleed PROCEDURE: The procedure, risks and benefits were discussed with Mr. Chacon and informed consent was obtained. Anesthesia sedated him with Diprivan. He was placed in the left lateral decubitus position. EGD: The Pentax videoscope was introduced through the oropharynx and advanced to the second portion of the duodenum under direct visualization. Retroflexion was performed in the stomach. ESTIMATED BLOOD LOSS: None SPECIMENS REMOVED: Duodenum, antrum COMPLICATIONS: None IMPRESSION: Significant duodenitis with small superficial ulcers in the first second and third portion of the duodenum biopsy were done from the duodenum Stomach was normal biopsy was done from the antrum to rule out H. pylori Esophagus normal PLAN: Follow-up biopsy May feed patient If there is rectal bleeding consider colonoscopy James Echols MD Aug 25, 2017 14:21
[2017-08-25 14:30] VITALS: TEMP 98.2
--- NOTE | 2017-08-25 14:34 | HHI.DCPOC ---
Discharge Care Plan Diagnosis: (1) Duodenitis Goals to Promote Your Health * To prevent worsening of your condition and complications * To maintain your health at the optimal level Directions to Meet Your Goals Take your medications as prescribed Follow your dietary instruction Follow activity as directed Keep your appointments as scheduled Take your immunizations and boosters as scheduled If your symptoms worsen call your PCP, if no PCP go to Urgent Care Center or Emergency Room Smoking is Dangerous to Your Health. Avoid second hand smoke Call the 24-hour hour crisis hotline for domestic abuse at Faye Bonilla MD Aug 25, 2017 14:34
[2017-08-25 14:45] VITALS: BP 110/64; PULSE 55; RESP 16; O2SAT 97
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
== END 2017-08-25 18:26 | disposition home or self-care (01) ==
LOC: PHED 14:29 → PHEDA 18:03 → PH3A 18:51
PROVIDERS: ADMIT Hospitalist; ATTEND Hospitalist
DX: K92.1 Melena (principal); K29.80 Duodenitis without bleeding; K29.50 Unspecified chronic gastritis without bleeding
CPT/HCPCS: 00731; 43239; 74174; 80053; 81001; 83690; 85025; 88305; 88312; 96361; 96372; 96374; 96375; 96376; 99285; G0378; J0500; J1885; J2270; J2405; J7030; Q9967